=== PATIENT | female | born 1970 | race Hispanic/Latino ===

== ENCOUNTER 2017-07-22 12:00 | Inpatient (IN) | payer BC ==
[~2017-07-22] VITALS: Ht 162.6 cm; Wt 98.8 kg
[2017-07-22 10:53] VITALS: BP 105/58
[2017-07-22 11:02] LABS: BASOPHILS % (AUTO) 0.3 % (0.0-5.0); EOSINOPHILS % (AUTO) 0.9 % (0.0-8.0); HEMATOCRIT 30.8 % (36-48); LYMPHOCYTES % (AUTO) 14.1 % (21.0-51.0); MEAN CORPUSCULAR HEMOGLOBIN 28.1 pg (27.0-33.0); MEAN CORPUSCULAR HGB CONC 34.4 g/dL (32.0-36.0); MEAN CORPUSCULAR VOLUME 81.6 fL (79-99); MONOCYTES % (AUTO) 8.5 % (3.0-13.0); NEUTROPHILS % (AUTO) 76.2 % (40.0-77.0); PLATELET COUNT (AUTO) 344 K/uL (130-400); RED BLOOD CELL COUNT(AUTO) 3.77 MIL/uL (4.00-5.50); RED CELL DISTRIBUTION WIDTH 13.6 % (11.0-15.5); WHITE BLOOD COUNT (AUTO) 8.6 K/uL (4.8-10.8)
[~2017-07-22 12:00] MED LIST: CALC-866 PO; DEXA10VI5 IM; KETO60I IM; MORPHINE ER PO; MORPHINE PO; POLY17PO4 PO; SENN-141 PO
[2017-07-23] VITALS (21 sets, daily range): BP systolic 108–138; BP diastolic 60–83
[2017-07-23] MEDS: CEFAZOLIN SODIUM 1 GM VIAL IVP SCH ×2 (07:30→08:03)
[2017-07-23] MEDS ORDERED: FENTANYL CITRATE PF 50 MCG/1 ML 2ML VIAL ONE ×4 (07:56→09:19)
[2017-07-23] MEDS ORDERED: MIDAZOLAM HCL 1 MG/ML 2ML VIAL ONE (07:56)
[2017-07-23] MEDS ORDERED: LACTATED RINGERS 1000ML 1,000 ML IV ONE (07:56)
[2017-07-23] MEDS ORDERED: PROPOFOL 10 MG/ML 20ML VIAL IV ONE (07:56)
[2017-07-23] MEDS ORDERED: FUROSEMIDE 10 MG/ML 4ML VIAL ONE (08:14)
[2017-07-23] MEDS ORDERED: ONDANSETRON HCL 4 MG/2 ML VIAL ONE (08:14)
[2017-07-23] MEDS ORDERED: DEXAMETHASONE SOD PHOSPHATE 10MG/ML 1ML VIAL ONE (08:14)
[2017-07-23] MEDS ORDERED: LIDOCAINE PF 2% 5ML ABBOJECT ONE (08:14)
[2017-07-23] MEDS ORDERED: DiphenhydrAMINE HCL 50 MG/ML VIAL ONE (08:14)
[2017-07-23] MEDS ORDERED: NEOSTIGMINE 5MG/5ML SYR IV ONE (08:14)
[2017-07-23] MEDS ORDERED: MORPHINE SULFATE 10 MG/ML 1ML SYG ONE (09:08)
[2017-07-23] MEDS ORDERED: SIMETHICONE 80 MG TAB.CHEW PO PRN (09:30)
[2017-07-23] MEDS ORDERED: BISACODYL 10 MG SUPP.RECT RC PRN (09:30)
[2017-07-23] MEDS ORDERED: HYDROMORPHONE 4MG/ML 1ML VIAL ONE (09:40)
[2017-07-23] MEDS: DEXTROSE 5 %-0.45 % NACL 1,000 ML IV PRN ×2 (10:58→19:00)
[2017-07-23] MEDS: MEPERIDINE-PF 75 MG/ML SYG IM PRN (18:59)
[2017-07-23] MEDS: PROMETHAZINE HCL 25 MG/ML 1ML AMPULE IM PRN (18:59)
[2017-07-24] MEDS: DEXTROSE 5 %-0.45 % NACL 1,000 ML IV PRN ×2 (02:28→10:15)
[2017-07-24 03:00] VITALS: BP 127/68
[2017-07-24] MEDS: PROMETHAZINE HCL 25 MG/ML 1ML AMPULE IM PRN (03:36)
[2017-07-24] MEDS: MEPERIDINE-PF 75 MG/ML SYG IM PRN (03:37)
[2017-07-24 06:36] LABS: HEMATOCRIT 26.9 % (36-48); MEAN CORPUSCULAR HEMOGLOBIN 28.1 pg (27.0-33.0); MEAN CORPUSCULAR HGB CONC 34.5 g/dL (32.0-36.0); MEAN CORPUSCULAR VOLUME 81.4 fL (79-99); PLATELET COUNT (AUTO) 299 K/uL (130-400); RED CELL DISTRIBUTION WIDTH 13.4 % (11.0-15.5); WHITE BLOOD COUNT (AUTO) 8.1 K/uL (4.8-10.8)
[2017-07-24] MEDS ORDERED: IBUPROFEN 800 MG TAB PO SCH ×2 (07:45→09:30)
[2017-07-24] MEDS ORDERED: HYDROCODONE/ACETAMINOPHEN 5/325 MG TAB PO PRN (07:45)
[2017-07-24] MEDS ORDERED: DOCUSATE SODIUM 100 MG CAP PO PRN (07:45)
[2017-07-24] MEDS ORDERED: BISACODYL 10 MG SUPP.RECT RC PRN (07:45)
[2017-07-24] MEDS ORDERED: SODIUM CHLORIDE 0.9% 10 ML VIAL IVP PRN (07:45)
[2017-07-24 07:48] VITALS: BP 126/69
[2017-07-24] MEDS: DOCUSATE SODIUM 100 MG CAP PO PRN ×2 (09:20→21:13)
[2017-07-24] MEDS: SIMETHICONE 80 MG TAB.CHEW PO PRN ×4 (09:21→21:13)
[2017-07-24] MEDS: IBUPROFEN 800 MG TAB PO SCH ×4 (09:21→21:14)
[2017-07-24 12:24] VITALS: BP 124/71
[2017-07-24 19:58] VITALS: BP 125/67
[2017-07-24 23:21] VITALS: BP 120/70
[2017-07-25 03:00] VITALS: BP 116/70
[2017-07-25 08:00] VITALS: BP 118/72
[2017-07-25] MEDS: DOCUSATE SODIUM 100 MG CAP PO PRN (08:43)
[2017-07-25] MEDS: SIMETHICONE 80 MG TAB.CHEW PO PRN ×2 (08:44→14:25)
[2017-07-25] MEDS: IBUPROFEN 800 MG TAB PO SCH ×2 (08:55→14:25)
[2017-07-25 11:38] VITALS: BP 116/61
== END 2017-07-25 14:45 | disposition home or self-care (01) | DRG 580 ==
LOC: EDSTATUS 12:00 → DAHIP 07-23 06:44 → WSH 07-23 10:40
PROVIDERS: ADMIT Specialist; ATTEND Specialist
PROC: 0UT70ZZ Resection of Bilateral Fallopian Tubes, Open Approach (ICD-10-PCS; 2017-07-23)
PROC: 0UT90ZZ Resection of Uterus, Open Approach (ICD-10-PCS; principal; 2017-07-23 07:59)
PROC: 0UT20ZZ Resection of Bilateral Ovaries, Open Approach (ICD-10-PCS; 2017-07-23 07:59)
DX: C50.919 Malignant neoplasm of unspecified site of unspecified female breast (principal); C79.9 Secondary malignant neoplasm of unspecified site; Z17.0 Estrogen receptor positive status [ER+]; Z85.3 Personal history of malignant neoplasm of breast; Z90.12 Acquired absence of left breast and nipple; Z90.49 Acquired absence of other specified parts of digestive tract; Z51.11 Encounter for antineoplastic chemotherapy; Z51.0 Encounter for antineoplastic radiation therapy
CPT/HCPCS: 36415; 84703; 85025; 85027; 86850; 86900; 86901; 88307; A4218; A4344; J0690; J1100; J1170; J1200; J1940; J2001; J2175; J2250; J2270; J2405; J2550; J2704; J2710; J3010; J7120